=== PATIENT | female | born 1995 | race Two or more races ===

== ENCOUNTER 2022-10-03 11:10 | Outpatient (CLI) | payer OTHER | END 2022-10-03 11:13 | disposition home or self-care (01) | LOC: SONOGRAMA 11:10 | PROVIDERS: ATTEND Pathology Anatomic Pathology & Clinical Pathology | DX: D44.0 Neoplasm of uncertain behavior of thyroid gland (principal); E07.9 Disorder of thyroid, unspecified; E04.1 Nontoxic single thyroid nodule ==

== ENCOUNTER 2022-11-14 20:22 | Emergency (ER) | payer OTHER ==
[~2022-11-14] VITALS: Ht 157.5 cm; Wt 62.6 kg
[2022-11-14] MEDS ORDERED: ZESTRIL20 MG (21:08)
[2022-11-14] MEDS ORDERED: ONDANSETRON ODT8 MG PO (22:53)
[2022-11-14] MEDS ORDERED: PEPCID AC20 MG PO (22:53)
== END 2022-11-14 23:16 | disposition home or self-care (01) ==
LOC: ER 20:22
DX: K52.89 Other specified noninfective gastroenteritis and colitis (principal); Z20.822 Contact with and (suspected) exposure to COVID-19; Z88.6 Allergy status to analgesic agent

== ENCOUNTER 2023-02-20 08:13 | Outpatient (CLI) | payer OTHER ==
[~2023-02-20 08:13] MED LIST: ONDANSETRON ODT8 MG PO; PEPCID AC20 MG PO; ZESTRIL20 MG
== END 2023-02-20 08:16 | disposition home or self-care (01) ==
LOC: SONOGRAMA 08:13
PROVIDERS: ATTEND Pathology Anatomic Pathology & Clinical Pathology
DX: D44.0 Neoplasm of uncertain behavior of thyroid gland (principal); E07.9 Disorder of thyroid, unspecified

== ENCOUNTER 2023-05-13 21:04 | Emergency (ER) | payer OTHER ==
[~2023-05-13] VITALS: Ht 157.5 cm; Wt 63.5 kg
[2023-05-13 23:17] LABS: HEMOGLOBIN 12.6 g/dL (12.0-15.00); MEAN CELL VOLUME 78.5 fL (80.00-100.00); MEAN CORPUSCULAR HGB CONC 33.1 g/dl (32.0-36.0); PLATELET COUNT 267 K/uL (150-450); RED BLOOD COUNT 4.84 M/uL (4.00-6.00); RED CELL DISTRIBUTION WIDTH 14.3 % (11.5-14.5)
[2023-05-13 23:36] LABS: CALCIUM 9.2 mg/dL (8.5-10.1); CREATININE SERUM 0.54 mg/dL (0.55-1.02); GFR 134.43; POTASSIUM 4.15 mEq/L (3.5-5.1)
== END 2023-05-14 04:33 | disposition home or self-care (01) ==
LOC: ER 21:04
PROVIDERS: General Practice
DX: N39.0 Urinary tract infection, site not specified (principal); R10.2 Pelvic and perineal pain; Z88.6 Allergy status to analgesic agent

== ENCOUNTER 2023-07-27 01:17 | Emergency (ER) | payer OTHER ==
[~2023-07-27] VITALS: Ht 157.5 cm; Wt 66.2 kg
[2023-07-27 04:13] LABS: HEMATOCRIT 36.6 % (36.0-45.00); HEMOGLOBIN 12.3 g/dL (12.0-15.00); MEAN CELL VOLUME 78.3 fL (80.00-100.00); MEAN CORPUSCULAR HEMOGLOBIN 26.4 pg (27.00-32.0); MEAN CORPUSCULAR HGB CONC 33.7 g/dl (32.0-36.0); PLATELET COUNT 316 K/uL (150-450); RED BLOOD COUNT 4.68 M/uL (4.00-6.00); RED CELL DISTRIBUTION WIDTH 14.2 % (11.5-14.5)
[2023-07-27 04:53] LABS: URINE APPEARANCE Cloudy; URINE BILIRRUBIN Negative (NEGATIVE); URINE BLOOD Large; URINE COLOR Yellow; URINE GLUCOSE Negative (NEGATIVE); URINE LEUKOCYTE Small; URINE NITRATE Negative; URINE PROTEIN Trace (NEGATIVE)
[2023-07-27 04:54] LABS: URINE BACTERIA 255.7 uL (0.0-1933); URINE EPITHELIAL CELLS 26.5 uL (0.0-38.8); URINE RBC 2511.7 uL (0.0-20.8); URINE WBC 49.7 uL (0.0-23.2)
[2023-07-27 05:38] LABS: URINE CRYSTALS FEW /HPF
[2023-07-27] MEDS ORDERED: CEPHALEXIN500 MG PO (06:25)
[2023-07-27] MEDS ORDERED: DOLOGESIC 500-1 EACH PO (06:25)
== END 2023-07-27 06:31 ==
LOC: ER 01:17
PROVIDERS: General Practice
DX: N39.0 Urinary tract infection, site not specified (principal); Z88.6 Allergy status to analgesic agent

== ENCOUNTER 2023-08-31 00:40 | Emergency (ER) | payer OTHER ==
[~2023-08-31] VITALS: Ht 157.5 cm; Wt 66.2 kg
[~2023-08-31 00:40] MED LIST changes: +CEPHALEXIN500 MG PO; +DOLOGESIC 500-1 EACH PO
[2023-08-31] MEDS ORDERED: NORFLEX100MG PO (04:56)
[2023-08-31] MEDS ORDERED: DOLOGESIC 500-1 EACH PO (04:56)
== END 2023-08-31 05:05 ==
LOC: ER 00:41
DX: M62.830 Muscle spasm of back (principal); Z88.6 Allergy status to analgesic agent

== ENCOUNTER 2023-11-23 13:36 | Emergency (ER) | payer OTHER ==
[~2023-11-23] VITALS: Ht 157.5 cm; Wt 61.7 kg
[~2023-11-23 13:36] MED LIST changes: +NORFLEX100MG PO
[2023-11-23] MEDS ORDERED: SYNTHROID137 MCG PO (14:01)
== END 2023-11-23 15:29 | disposition home or self-care (01) ==
LOC: ER 13:36
DX: M94.0 Chondrocostal junction syndrome [Tietze] (principal); Z88.6 Allergy status to analgesic agent; E03.9 Hypothyroidism, unspecified

== ENCOUNTER 2024-03-21 18:50 | Emergency (ER) | payer OTHER ==
[~2024-03-21] VITALS: Ht 157.5 cm; Wt 63.0 kg
[~2024-03-21 18:50] MED LIST changes: +SYNTHROID137 MCG PO
[2024-03-21] MEDS ORDERED: DEXAMETHASONE SODIUM PHOSPHATE 4 MG/ML VIAL ONE (20:26)
[2024-03-21] MEDS ORDERED: BUTALB/ACETAMINOPHEN/CAFFEINE 1 TAB TABLET PO ONE ×2 (20:26→20:30)
[2024-03-21] MEDS ORDERED: DEXAMETHASONE SODIUM PHOSPHATE 4 MG/ML VIAL IM ONE (20:30)
[2024-03-21 20:51] LABS: HEMATOCRIT 39.5 % (36.0-45.00); HEMOGLOBIN 13.4 g/dL (12.0-15.00); MEAN CELL VOLUME 78.8 fL (80.00-100.00); MEAN CORPUSCULAR HEMOGLOBIN 26.7 pg (27.00-32.0); MEAN CORPUSCULAR HGB CONC 33.9 g/dl (32.0-36.0); PLATELET COUNT 304 K/uL (150-450); RED BLOOD COUNT 5.01 M/uL (4.00-6.00); RED CELL DISTRIBUTION WIDTH 14.9 % (11.5-14.5)
[2024-03-21] MEDS ORDERED: BUTALBIT-ACETA1 EACH PO (22:24)
== END 2024-03-21 22:27 | disposition home or self-care (01) ==
LOC: ER 18:51
PROVIDERS: General Practice
DX: R51.9 Headache, unspecified (principal); R53.81 Other malaise; Z20.822 Contact with and (suspected) exposure to COVID-19; Z88.6 Allergy status to analgesic agent